=== PATIENT | female | born 1985 | race Caucasian/White ===

== ENCOUNTER 2022-12-01 15:44 | Emergency (ER) | payer MEDICAID ==
[~2022-12-01] VITALS: Ht 167.6 cm; Wt 55.2 kg
[2022-12-01 16:38] VITALS: TEMP 97.4
[2022-12-01 17:10] LABS: BASOPHILS % (AUTO) 0.2 % (0-1); EOSINOPHILS % (AUTO) 0.2 % (0-6); HEMATOCRIT 44.7 % (35.0-45.0); HEMOGLOBIN 14.9 g/dl (12.0-16.0); LYMPHOCYTES # (AUTO) 0.9 X10'3 (1.1-4.8); LYMPHOCYTES % (AUTO) 5.2 % (21-51); MEAN CORPUSCULAR HEMOGLOBIN 30.6 PG (27.0-31.0); MEAN CORPUSCULAR HGB CONC 33.3 g/dL (33.0-36.5); MEAN CORPUSCULAR VOLUME 91.9 FL (78-98); MEAN PLATELET VOLUME 7.1 FL (7.4-10.4); MONOCYTES # (AUTO) 0.9 X10'3 (0-0.9); MONOCYTES % (AUTO) 5.4 % (2-12); NEUTROPHILS # (AUTO) 14.8 X10'3 (1.8-7.7); PLATELET COUNT 411 X10'3 (140-440); RED BLOOD COUNT 4.87 X10'6 (4.20-5.60); WHITE BLOOD COUNT 16.7 X10'3 (4.5-11.0)
[2022-12-01 17:21] LABS: APTT 27 SECONDS (22-32); PROTHROMBIN TIME 10.3 SECONDS (9.0-12.0)
[2022-12-01 17:34] LABS: ALANINE AMINOTRANSFERASE 25 U/L (12-78); ALBUMIN 3.8 G/DL (3.4-5.0); ALBUMIN/GLOBULIN RATIO 1.1 (1.1-1.5); ALKALINE PHOSPHATASE 79 IU/L (46-116); ANION GAP 8 (8-16); ASPARTATE AMINO TRANSFERASE 16 U/L (10-37); BILIRUBIN,TOTAL 0.5 MG/DL (0.1-1.0); BLOOD UREA NITROGEN 20 MG/DL (7-18); CHLORIDE 102 MMOL/L (99-107); CREATININE 0.87 MG/DL (0.40-0.90); ETHANOL < 10 MG/DL (<10); GLUCOSE 111 MG/DL (70-104); LIPASE 71 U/L (73-393); POTASSIUM 3.9 MMOL/L (3.5-5.1); SODIUM 136 MMOL/L (135-145); TOTAL CARBON DIOXIDE 25.9 MMOL/L (24-32); TOTAL PROTEIN 7.4 G/DL (6.4-8.2); eCRCL 77 ML/MIN; eGFR 73 ML/MIN
[2022-12-01] MEDS ORDERED: glycopyrrolate 0.2mg/ml inj IV ONE (17:55)
[2022-12-01] MEDS ORDERED: normal saline 1000ML IV soln IVB ONE ×2 (17:55→19:40)
[2022-12-01] MEDS ORDERED: ampicillin/sulbac 3gm/NS 100ml 100 ML IV ONE (17:57)
[2022-12-01] MEDS ORDERED: ondansetron/PF 4mg/2ml inj IV ONE (18:00)
--- NOTE | 2022-12-01 19:35 | NUR ---
Call to pharmacy regarding IV abx not in [facility]nic[facility], per Pharmacist, tech bringing abx now.
[2022-12-01] MEDS ORDERED: iohexol 300mg/ml 100ml inj. ONE (19:52)
[2022-12-01 20:01] LABS: BILIRUBIN,URINE NEGATIVE (Neg); CLARITY,URINE SLIGHTLY CLOUDY (Clear); COLOR,URINE YELLOW (Yellow); GLUCOSE, URINE NEGATIVE (Neg); KETONES,URINE NEGATIVE (Neg); LEUKOCYTE ESTERASE ,URINE NEGATIVE (Neg); NITRITES, URINE NEGATIVE (Neg); OCCULT BLOOD,URINE SMALL (Neg); PROTEIN,URINE NEGATIVE (Neg); UROBILINOGEN,URINE 0.2 E.U/dL (0.2-1.0)
[2022-12-01 20:02] LABS: URINE HCG NEGATIVE (NEG)
[2022-12-01 20:08] LABS: MUCUS STRANDS MANY /LPF (Neg); SQUAMOUS EPITHELIAL CELL,UR MANY /LPF (FEW); UA COLLECTION TYPE CLN CATCH MIDSTREAM
[2022-12-01 20:10] LABS: BACTERIA,URINE 1+ /HPF (Neg); TRANSITIONAL EPI CELLS,URINE FEW /HPF
[2022-12-01 20:11] LABS: AMORPHOUS URATES 1+
[2022-12-01] MEDS ORDERED: metoclopramide 5 mg/ml inj IV ONE (20:15)
[2022-12-01] MEDS ORDERED: diphenhydrAMINE 50 mg/ml inj IV ONE (20:15)
[2022-12-01] MEDS ORDERED: AMOX-580 PO (21:46)
[2022-12-01] MEDS ORDERED: DICY10CA88 PO (21:46)
[2022-12-01] MEDS ORDERED: ONDA4TAB12 PO (21:46)
[2022-12-01 22:28] VITALS: BP 145/93; PULSE 83; RESP 16; O2SAT 100
== END 2022-12-01 22:56 | disposition home or self-care (01) ==
LOC: ER 15:46
DX: K92.1 Melena (principal); R10.30 Lower abdominal pain, unspecified; Z79.899 Other long term (current) drug therapy
CPT/HCPCS: 36415; 74177; 80053; 80320; 81001; 81025; 83690; 84145; 85025; 85610; 85730; 86885; 86900; 86901; 96361; 96365; 96375; 99285; J0295; J1200; J2405; J2765; J3490; J7030; Q9967